=== PATIENT | male | born 1980 | race Two or more races ===

== ENCOUNTER 2019-02-15 00:56 | Emergency (ER) | payer SELFPAY ==
[~2019-02-15] VITALS: Ht 175.3 cm; Wt 96.4 kg
[2019-02-15 01:01] VITALS: Ht 175.3 cm; Wt 96.4 kg
[2019-02-15 02:33] VITALS: BP 142/87
== END 2019-02-15 02:33 | disposition home or self-care (01) ==
LOC: ED 00:56
DX: S00.512A Abrasion of oral cavity, initial encounter (principal); W50.3XXA Accidental bite by another person, initial encounter; Y93.89 Activity, other specified; Y92.89 Other specified places as the place of occurrence of the external cause; Y99.8 Other external cause status